=== PATIENT | female | born 1945 | race Caucasian/White ===

== ENCOUNTER 2020-10-27 12:18 | Emergency (ER) | payer MEDICARE ==
[~2020-10-27] VITALS: Ht 162.6 cm; Wt 66.0 kg
[~2020-10-27 12:18] MED LIST: DICY10CA3 PO; DIVA250T PO; DONE10TA7 PO; ESTR1TAB17 PO; LACT1CAP2 PO; LEXAPRO20 MG PO; LISI20TA18 PO; LORA0.5T96 PO; MEMA10TA PO; METF500T16 PO; NITR50CA PO; PIOG15TA42 PO; QUET50TA5 PO; SIMV40TA PO; VERA240C2 PO
[2020-10-27 12:20] VITALS: BP 163/80
--- NOTE | 2020-10-27 13:32 | PHYS DOC ---
Past Medical History Past Medical History: Anxiety, Bipolar, Dementia, Depression, Diabetes-Type II, Hypertension Past Surgical History: Hysterectomy, Tonsillectomy Smoking Status: Never Smoker Alcohol Use: None Adult General Chief Complaint Chief Complaint: TOE PROBLEM HPI HPI Patient is a 75 year old female with a known past medical history of severe Alzheimer's dementia unable to provide any significant history now presenting to the emergency department lead to be concern for left hip fracture. According to alf she was seen and evaluated by physician yesterday is noted to have a fracture of the left fifth toe. Clearly alf she was sent here today to be fitted for a postoperative shoe. Patient is unable to find any significant history is denying any complaints at this time Review of Systems Review of Systems Constitutional: Denies fever or chills [] Eyes: Denies change in visual acuity, redness, or eye pain [] HENT: Denies nasal congestion or sore throat [] Respiratory: Denies cough or shortness of breath [] Cardiovascular: No additional information not addressed in HPI [] GI: Denies abdominal pain, nausea, vomiting, bloody stools or diarrhea [] : Denies dysuria or hematuria [] Musculoskeletal: Denies back pain or joint pain [] Integument: Denies rash or skin lesions [] Neurologic: Denies headache, focal weakness or sensory changes [] Endocrine: Denies polyuria or polydipsia [] All other systems were reviewed and found to be within normal limits, except as documented in this note. Allergies Allergies Allergies Coded Allergies Type Severity Reaction Last Updated Verified propoxyphene Allergy Severe 07/25/20 Yes garlic Allergy Intermediate 07/25/20 Yes metaxalone Allergy Intermediate 07/25/20 Yes oxycodone Allergy Intermediate 07/25/20 Yes Physical Exam Physical Exam Constitutional: Well developed, well nourished, no acute distress, non-toxic appearance. [] HENT: Normocephalic, atraumatic, bilateral external ears normal, oropharynx moist, no oral exudates, nose normal. [] Eyes: PERRLA, EOMI, conjunctiva normal, no discharge. [] Neck: Normal range of motion, no tenderness, supple, no stridor. [] Cardiovascular:Heart rate regular rhythm, no murmur [] Lungs & Thorax: Bilateral breath sounds clear to auscultation [] Abdomen: Bowel sounds normal, soft, no tenderness, no masses, no pulsatile masses. [] Skin: Warm, dry, no erythema, no rash. [] Back: No tenderness, no CVA tenderness. [] Extremities: Mild L 5th toe tenderness, no cyanosis, no clubbing, ROM intact, no edema. [] Neurologic: Alert and oriented X 3, normal motor function, normal sensory function, no focal deficits noted. [] Psychologic: Affect normal, judgement normal, mood normal. [] Current Patient Data Vital Signs Vital Signs Date Time Temp Pulse Resp B/P (MAP) Pulse Ox O2 Delivery O2 Flow Rate FiO2 10/27/20 12:20 98.2 86 16 163/80 (107) 96 Room Air 98.2 EKG EKG [] Radiology/Procedures Radiology/Procedures [] Course & Med Decision Making Course & Med Decision Making Pertinent Labs and Imaging studies reviewed. (See chart for details) 75F brought to the emergency department for presumed left-sided toe pain after fracture. Will provide postop shoe and discharged home Dragon Disclaimer Dragon Disclaimer This electronic medical record was generated, in whole or in part, using a voice recognition dictation system. Departure Departure Impression: Primary Impression: Toe fracture, left Disposition: 01 DC HOME SELF CARE/HOMELESS Condition: GOOD Referrals: ANUSHKA SCHRADER DO (PCP) Patient Instructions: Toe Fracture Additional Instructions: EMERGENCY DEPARTMENT GENERAL DISCHARGE INSTRUCTIONS Thank you for coming to [facility] Emergency Department (ED) today and trusting us with you care. We trust that you had a positive experience in our Emergency Department. If you wish to speak to the department management, you may call the Director at [phone]. YOUR FOLLOW UP INSTRUCTIONS ARE FOLLOWS: 1. Do you have a private Doctor? If you do not have a private doctor, please ask for a resource list of physicians or clinics that may be able to assist you with follow up care. 2. The Emergency Physicain has interpreted your x-rays. The X-Ray specialist will also review them. If there is a change in the findings, you will be notified in 48 hours when at all possible. 3. A lab test or culture has been done, your results will be reviewed and you will be notified if you need a change in treatment. ADDITIONAL INSTRUCTIONS AND INFORMATION: 1. Your care today has been supervised by a physician who is specially trained in emergency care. Many problems require more than one evaluation for a complete diagnosis and treatment. We recommend that you schedule your follow up appointment as recommended to ensure complete treatment of you illness or injury. If you are unable to obtain follow up care and continue to have a problem, or if your condition worsens, we recommend that you return to the ED. 2. We are not able to safely determine your condition over the phone nor are we able to give sound medical advice over the phone. For these safety reasons, if you call for medical advice we will ask you to come to the ED for further evaluation. 3. If you have any questions regarding these discharge instructions please call the ED at [phone]. SAFETY INFORMATION: In the interest of safety, wellness, and injury prevention; we encourage you to wear your sealbelt, if you smoke; quite smoking, and we encourage family to use a protective helmet for bicycling and other sporting events that present an increased risk for head injury. IF YOUR SYMPTOMS WORSEN OR NEW SYMPTOMS DEVELOP, OR YOU HAVE CONCERNS ABOUT YOUR CONDITION; OR IF YOUR CONDITION WORSENS WHILE YOU ARE WAITING FOR YOUR FOLLOW UP APPOINTMENT; EITHER CONTACT YOUR PRIMARY CARE DOCTOR, THE PHYSICIAN WHOSE NAME AND NUMBER YOU WERE GIVEN, OR RETURN TO THE ED IMMEDIATELY. ELBA CALDWELL MD Oct 27, 2020 13:32
== END 2020-10-27 15:15 | disposition home or self-care (01) ==
LOC: ER 12:18
DX: S92.502A Displaced unspecified fracture of left lesser toe(s), initial encounter for closed fracture (principal); F31.9 Bipolar disorder, unspecified; G30.9 Alzheimer's disease, unspecified; F02.80 Dementia in other diseases classified elsewhere, unspecified severity, without behavioral disturbance, psychotic disturbance, mood disturbance, and anxiety; E11.9 Type 2 diabetes mellitus without complications; I10 Essential (primary) hypertension; Z88.5 Allergy status to narcotic agent; Z88.8 Allergy status to other drugs, medicaments and biological substances; Z91.018 Allergy to other foods; X58.XXXA Exposure to other specified factors, initial encounter; Y93.89 Activity, other specified; Y92.89 Other specified places as the place of occurrence of the external cause; Y99.8 Other external cause status
CPT/HCPCS: 99284

== ENCOUNTER 2021-06-14 10:58 | Emergency (ER) | payer MEDICARE ==
[~2021-06-14] VITALS: Ht 154.9 cm; Wt 71.0 kg
--- NOTE | 2021-06-14 11:14 | PHYS DOC ---
Past Medical History Past Medical History: Anxiety, Bipolar, Dementia, Depression, Diabetes-Type II, Hypertension Past Surgical History: Hysterectomy, Tonsillectomy Smoking Status: Never Smoker Alcohol Use: None General Adult EDM: Chief Complaint: AMS HPI: HPI: 76-year-old female who has a history of dementia and is a [facility] resident presents the emergency department for altered mental status. Per report from EMS, the patient was refusing her medications this morning and she reportedly has never done this before. According to the patient, she had a pain pill this morning that she has never had before which is making her feel "funny ". She complains of head pain, abdominal pain. She does not give a clear answer on if she hit her head or not prior to arrival in the emergency department. She is overall a poor historian and has a baseline history of dementia. She does admit to some abdominal pain that is nondescript around her "waist " Review of Systems: Review of Systems: Further ROS is impossible to obtain secondary to the patient's baseline mental status. Heart Score: C/O Chest Pain: No Family History: Family History: Noncontributory Allergies: Allergies: Allergies Coded Allergies Type Severity Reaction Last Updated Verified propoxyphene Allergy Severe 07/25/20 Yes garlic Allergy Intermediate 07/25/20 Yes metaxalone Allergy Intermediate 07/25/20 Yes oxycodone Allergy Intermediate 07/25/20 Yes Physical Exam: PE: Constitutional: Elderly demented female laying in the bed in mild distress. HENT: Atraumatic, bilateral external ears normal, nose normal. Eyes: Pinpoint pupils that are reactive, EOMI Neck: Normal range of motion, supple, no stridor. Cardiovascular: Heart rate regular rhythm. 2+ radial pulses Lungs & Thorax: No respiratory distress, symmetrical expansion. Bilateral breath sounds clear to auscultation Abdomen: Soft, lower quadrant abdominal tenderness Skin: Warm, dry. Extremities: No tenderness, no cyanosis, ROM intact, no edema. Neurologic: Alert and oriented X 3, normal motor function, normal sensory function, no focal deficits noted. GCS 14 Current Patient Data: Labs: Laboratory Tests Test 06/14/21 11:35 White Blood Count 10.1 x10^3/uL (4.0-11.0) Red Blood Count 3.45 x10^6/uL (3.50-5.40) Hemoglobin 11.2 g/dL (12.0-15.5) Hematocrit 33.6 % (36.0-47.0) Mean Corpuscular Volume 97 fL (79-100) Mean Corpuscular Hemoglobin 33 pg (25-35) Mean Corpuscular Hemoglobin Concent 33 g/dL (31-37) Red Cell Distribution Width 13.5 % (11.5-14.5) Platelet Count 137 x10^3/uL (140-400) Neutrophils (%) (Auto) 76 % (31-73) Lymphocytes (%) (Auto) 10 % (24-48) Monocytes (%) (Auto) 13 % (0-9) Eosinophils (%) (Auto) 0 % (0-3) Basophils (%) (Auto) 1 % (0-3) Neutrophils # (Auto) 7.7 x10^3/uL (1.8-7.7) Lymphocytes # (Auto) 1.0 x10^3/uL (1.0-4.8) Monocytes # (Auto) 1.3 x10^3/uL (0.0-1.1) Eosinophils # (Auto) 0.0 x10^3/uL (0.0-0.7) Basophils # (Auto) 0.0 x10^3/uL (0.0-0.2) Urine Collection Type U cath Urine Color Yellow Urine Clarity Clear Urine pH 8.0 (<5.0-8.0) Urine Specific [place] 1.020 (1.000-1.030) Urine Protein 30 mg/dL (NEG-TRACE) Urine Glucose (UA) 100 mg/dL (NEG) Urine Ketones (Stick) Trace mg/dL (NEG) Urine Blood Negative (NEG) Urine Nitrite Positive (NEG) Urine Bilirubin Negative (NEG) Urine Urobilinogen Dipstick 1.0 mg/dL (0.2 mg/dL) Urine Leukocyte Esterase Trace (NEG) Urine RBC 0 /HPF (0-2) Urine WBC 5-10 /HPF (0-4) Urine Squamous Epithelial Cells Few /LPF Urine Transitional Epithelial Cells Occ /LPF Urine Bacteria Few /HPF (0-FEW) Sodium Level 141 mmol/L (136-145) Potassium Level 3.9 mmol/L (3.5-5.1) Chloride Level 104 mmol/L (98-107) Carbon Dioxide Level 29 mmol/L (21-32) Anion Gap 8 (6-14) Blood Urea Nitrogen 18 mg/dL (7-20) Creatinine 1.0 mg/dL (0.6-1.0) Estimated GFR (Cockcroft-Gault) 53.9 BUN/Creatinine Ratio 18 (6-20) Glucose Level 130 mg/dL (70-99) Lactic Acid Level 1.3 mmol/L (0.4-2.0) Calcium Level 8.2 mg/dL (8.5-10.1) Magnesium Level 2.0 mg/dL (1.8-2.4) Total Bilirubin 0.3 mg/dL (0.2-1.0) Aspartate Amino Transf (AST/SGOT) 12 U/L (15-37) Alanine Aminotransferase (ALT/SGPT) 11 U/L (14-59) Alkaline Phosphatase 70 U/L (46-116) Troponin I High Sensitivity < 4 ng/L (4-50) XM-Yfb-H-Type Natriuretic Peptide 493 pg/mL (0-449) Total Protein 6.4 g/dL (6.4-8.2) Albumin 2.7 g/dL (3.4-5.0) Albumin/Globulin Ratio 0.7 (1.0-1.7) Lipase 114 U/L (73-393) Urine Opiates Screen Neg (NEG) Urine Methadone Screen Neg (NEG) Urine Barbiturates Neg (NEG) Urine Phencyclidine Screen Neg (NEG) Urine Amphetamine/Methamphetamine Neg (NEG) Urine Benzodiazepines Screen Neg (NEG) Urine Cocaine Screen Neg (NEG) Urine Cannabinoids Screen Neg (NEG) Urine Ethyl Alcohol Neg (NEG) Vital Signs: Vital Signs Date Time Temp Pulse Resp B/P (MAP) Pulse Ox O2 Delivery O2 Flow Rate FiO2 06/14/21 11:14 98.2 109 16 164/86 (112) 99 Room Air 98.2 EKG: EKG: Time read: 1111 Sinus tachycardia rate of 112, no ST-T wave changes, no ectopic beats, normal axis, normal HI, QRS, and QTc intervals. Impression: Normal EKG. interpreted by Radha vale D.O. Radiology/Procedures: Radiology/Procedures: CT HEAD/BRAIN WO Date: 06/14/2021 12:12 PM Clinical Indication: Altered mental status Comparison: 07/25/2020. Technique: 5 mm axial tomographic images were obtained of the head without contrast. These were viewed on brain and bone windows. One or more of the following dose reduction techniques were utilized: Automated exposure control (A EC), Adjustment of mA and/or kV according to patient size, Use of iterative reconstruction technique such as ASiR, CT scan done according to ALARA and image gently/image wisely Findings: Moderate generalized cerebral and cerebellar volume loss. Moderate to severe nonspecific periventricular hypoattenuation, most commonly seen with chronic small vessel ischemic disease. Calcified atherosclerosis of the bilateral cavernous and paraclinoid internal carotid arteries and intracranial vertebral arteries. No intra- or extra-axial mass or fluid collection. No acute hemorrhage. The ventricles are normal in size, shape, and morphology. The montes-white matter junction is normal. The subarachnoid cisterns are patent. The visualized paranasal sinuses are normal. The visualized portions of the orbits and globes are normal. The mastoid air cells are clear. The gas leak inspector helper topogram shows no lytic lesion or fracture. Impression: No acute intracranial process. Moderate cerebral volume loss. Moderate to severe chronic small vessel ischemic disease. Electronically signed by: Julius Osorio MD (06/14/2021 12:48 PM) EXAM: XR CHEST 1V 06/14/2021 11:07 AM CLINICAL INDICATION: Altered mental status COMPARISON: Chest radiograph 07/26/2020 TECHNIQUE: AP upright view of the chest FINDINGS: The heart is normal in size. There is new elevation of the right hemidiaphragm. Lungs are mildly hypoexpanded. Streaky right perihilar opacities and mild bibasilar opacities are likely atelectasis. No pleural effusion or pneumothorax. IMPRESSION: Hypoexpanded lungs with new elevation of the right hemidiaphragm and mild bibasilar opacities, likely atelectasis. Electronically signed by: Yamilka Mendoza MD (06/14/2021 11:41 AM) CT ABDOMEN+PELVIS W History: Abdominal pain and tenderness. Comparison: None. Technique: CT of the abdomen and pelvis with intravenous contrast. Findings: The lungs are hypoinflated with bibasilar opacities, likely atelectasis. The liver, spleen, pancreas, and adrenal glands are unremarkable. The gallbladd er is surgically absent. Mild prominence of the common bile duct measuring approximately 8 mm diameter. No hydronephrosis or nephrolithiasis. The bladder is relatively decompressed. The uterus is surgically absent. No pelvic masses. The stomach and small bowel are unremarkable. Surgical clips at the cecal base likely represent appendectomy. Extensive sigmoid diverticulosis. Mild wall thickening at the sigmoid colon however relatively underdistended. No significant pericolonic inflammatory changes. No intra-abdominal free air or free fluid. No adenopathy. Postsurgical changes of the anterior abdominal wall from hernia repair with mesh. L3-L5 posterior spinal fixation with laminectomies. Adjacent segment degenerative disc disease at L2-L3. Impression: 1. Extensive sigmoid diverticulosis with mild wall thickening. This may be due to underdistention, however cannot exclude a mild diverticulitis. No free fluid or pericolonic inflammatory changes. 2. Otherwise no acute findings in the abdomen and pelvis. Status post cholecystectomy, appendectomy and hysterectomy. No evidence of bowel obstruction. Course & Med Decision Making: Course & Med Decision Making I discussed the care with the [facility], the patient at baseline has inappropriate responses to questions and is only oriented to herself. This is her behavior in the emergency department. By all accounts she appears to be at her baseline. Her CT scans are nonconcerning and her labs are at baseline. She will be discharged back to her nursing facility. Further hypertension management per [facility], there is no evidence of acute endorgan damage from hypertension today. Departure Departure Impression: Primary Impression: Behavior concern in adult Disposition: 03 HALFWAY FACILITY Condition: STABLE Referrals: ANUSHKA SCHRADER DO (PCP) Patient Instructions: Dementia, [id number] Additional Instructions: You were seen in the emergency department and your health condition was deemed not to require admission to the hospital. It is important to realize that we can only evaluate you during the time that you are in her department. Occasionally health conditions can worsen upon leaving the emergency department. If this were to happen, please return to and allow us the opportunity to reevaluate you. It is a pleasure to take care of your health needs. Return to the ER if your symptoms worsen, do not improve, or if you develop additional symptoms that are concerning to you RADHA JOHNSON DO Jun 14, 2021 11:14
--- NOTE | 2021-06-14 11:43 | RAD ---
EXAM: XR CHEST 1V 06/14/2021 11:07 AM CLINICAL INDICATION: Altered mental status COMPARISON: Chest radiograph 07/26/2020 TECHNIQUE: AP upright view of the chest FINDINGS: The heart is normal in size. There is new elevation of the right hemidiaphragm. Lungs are mildly hypoexpanded. Streaky right perihilar opacities and mild bibasilar opacities are likely atelec tasis. No pleural effusion or pneumothorax. IMPRESSION: Hypoexpanded lungs with new elevation of the right hemidiaphragm and mild bibasilar opac ities, likely atelectasis. Electronically signed by: Yamilka Mendoza MD (06/14/2021 11:41 AM) [id number]
[2021-06-14 11:45] LABS: BASO % 1 % (0-3); EOS % 0 % (0-3); HEMATOCRIT 33.6 % (36.0-47.0); HEMOGLOBIN 11.2 g/dL (12.0-15.5); LYMPH % 10 % (24-48); MEAN CORPUSCULAR HEMOGLOBIN 33 pg (25-35); MEAN CORPUSCULAR HGB CONC 33 g/dL (31-37); MEAN CORPUSCULAR VOLUME 97 fL (79-100); MONO # 1.3 x10^3/uL (0.0-1.1); MONO % 13 % (0-9); NEUT # 7.7 x10^3/uL (1.8-7.7); NEUT % 76 % (31-73); PLATELET COUNT 137 x10^3/uL (140-400); RED BLOOD COUNT 3.45 x10^6/uL (3.50-5.40); RED CELL DISTRIBUTION WIDTH 13.5 % (11.5-14.5); WHITE BLOOD COUNT 10.1 x10^3/uL (4.0-11.0)
[2021-06-14 11:47] LABS: BILIRUBIN,URINE NEGATIVE (NEG); CLARITY,URINE CLEAR; COLOR,URINE YELLOW; NITRITE,URINE POSITIVE (NEG); PROTEIN,URINE 30 mg/dL (NEG-TRACE)
[2021-06-14 11:56] LABS: CALCIUM 8.2 mg/dL (8.5-10.1); GFR 53.9; POTASSIUM 3.9 mmol/L (3.5-5.1)
[2021-06-14 12:03] LABS: ALBUMIN 2.7 g/dL (3.4-5.0); ALBUMIN/GLOBULIN RATIO 0.7 (1.0-1.7); TOTAL BILIRUBIN 0.3 mg/dL (0.2-1.0); TOTAL PROTEIN 6.4 g/dL (6.4-8.2)
[2021-06-14 12:07] LABS: BACTERIA,URINE FEW /HPF (0-FEW); RBC,URINE 0 /HPF (0-2)
[2021-06-14] MEDS ORDERED: CONTRAST GIVEN. MC PRN (12:15)
[2021-06-14] MEDS ORDERED: IOHEXOL 300 MG/ML 100ML VIAL. IV ONE (12:15)
[2021-06-14 12:43] LABS: BARBITURATES NEG (NEG); BENZODIAZEPINES NEG (NEG); CANNABINOIDS NEG (NEG); COCAINE NEG (NEG); METHADONE NEG (NEG); OPIATES NEG (NEG); PHENCYCLIDINE NEG (NEG)
[2021-06-14 12:44] LABS: AMPHETAMINE/METHAMPHETAMINE NEG (NEG)
--- NOTE | 2021-06-14 12:51 | RAD ---
CT HEAD/BRAIN WO Date: 06/14/2021 12:12 PM Clinical Indication: Altered mental status Comparison: 07/25/2020. Technique: 5 mm axial tomographic images were obtained of the head without contrast. These were view ed on brain and bone windows. One or more of the following dose reduction techniques were utilized: A utomated exposure control (AEC), Adjustment of mA and/or kV according to patient size, Use of iterati ve reconstruction technique such as ASiR, CT scan done according to ALARA and image gently/image chaudhary ly Findings: Moderate generalized cerebral and cerebellar volume loss. Moderate to severe nonspecific periventricu lar hypoattenuation, most commonly seen with chronic small vessel ischemic disease. Calcified atheros clerosis of the bilateral cavernous and paraclinoid internal carotid arteries and intracranial verteb ral arteries. No intra- or extra-axial mass or fluid collection. No acute hemorrhage. The ventricles are normal in size, shape, and morphology. The montes-white matter junction is normal. The subarachnoid cisterns are patent. The visualized paranasal sinuses are normal. The visualized portions of the orbits and globes are no rmal. The mastoid air cells are clear. The insulation engineman topogram shows no lytic lesion or fracture. Impression: No acute intracranial process. Moderate cerebral volume loss. Moderate to severe chronic small vessel ischemic disease. Electronically signed by: Julius Osorio MD (06/14/2021 12:48 PM) [facility]
--- NOTE | 2021-06-14 13:12 | RAD ---
CT ABDOMEN+PELVIS W History: Abdominal pain and tenderness. Comparison: None. Technique: CT of the abdomen and pelvis with intravenous contrast. Findings: The lungs are hypoinflated with bibasilar opacities, likely atelectasis. The liver, spleen, pancreas, and adrenal glands are unremarkable. The gallbladder is surgically absen t. Mild prominence of the common bile duct measuring approximately 8 mm diameter. No hydronephrosis o r nephrolithiasis. The bladder is relatively decompressed. The uterus is surgically absent. No pelvic masses. The stomach and small bowel are unremarkable. Surgical clips at the cecal base likely represent appen dectomy. Extensive sigmoid diverticulosis. Mild wall thickening at the sigmoid colon however relative ly underdistended. No significant pericolonic inflammatory changes. No intra-abdominal free air or free fluid. No adenopathy. Postsurgical changes of the anterior abdomi nal wall from hernia repair with mesh. L3-L5 posterior spinal fixation with laminectomies. Adjacent s egment degenerative disc disease at L2-L3. Impression: 1. Extensive sigmoid diverticulosis with mild wall thickening. This may be due to underdistention, h owever cannot exclude a mild diverticulitis. No free fluid or pericolonic inflammatory changes. 2. Otherwise no acute findings in the abdomen and pelvis. Status post cholecystectomy, appendectomy and hysterectomy. No evidence of bowel obstruction. ------ Exposure: One or more of the following individualized dose reduction techniques were utilized for thi s examination: 1. Automated exposure control 2. Adjustment of the mA and/or kV according to patient size 3. Use of iterative reconstruction technique. Electronically signed by: Rufino Collier MD (06/14/2021 1:09 PM) [id number]
[2021-06-14 15:53] VITALS: BP 185/86
--- NOTE | 2021-06-14 18:05 | EKG ---
[facility] [address] [place] [id number] Test Date: 2021-06-14 Test Time: 11:09:53 Pat Name: STANISLAW SEVILLA Department: Room: Gender: F Hide Buyer: : 1945 Requested By: RADHA JOHNSON Order Number: [id number] Reading MD: Gregorio Tinoco Measurements Intervals [place] Rate: 112 P: 64 IA: 126 QRS: 21 QRSD: 84 T: 50 QT: 328 QTc: 449 Interpretive Statements SINUS TACHYCARDIA T ABNORMALITY IN LATERAL LEADS ABNORMAL ECG Electronically Signed On 06-17-2021 9:38:36 GROWTH HACKER by Gregorio Tinoco
== END 2021-06-14 16:47 ==
LOC: ER 10:58
DX: R46.89 Other symptoms and signs involving appearance and behavior (principal); R41.82 Altered mental status, unspecified; R51.9 Headache, unspecified; R10.30 Lower abdominal pain, unspecified; F41.9 Anxiety disorder, unspecified; F31.9 Bipolar disorder, unspecified; F03.90 Unspecified dementia, unspecified severity, without behavioral disturbance, psychotic disturbance, mood disturbance, and anxiety; E11.9 Type 2 diabetes mellitus without complications; I10 Essential (primary) hypertension; Z88.5 Allergy status to narcotic agent; Z88.8 Allergy status to other drugs, medicaments and biological substances
CPT/HCPCS: 36415; 70450; 71045; 74177; 80053; 80307; 81001; 83605; 83690; 83735; 83880; 84484; 85025; 87040; 87077; 87086; 87186; 93005; 99285-25

== ENCOUNTER 2021-10-20 07:45 | Emergency (ER) | payer MEDICARE ==
[~2021-10-20] VITALS: Ht 170.2 cm; Wt 73.0 kg
--- NOTE | 2021-10-20 07:53 | PHYS DOC ---
Past Medical History Past Medical History: Anxiety, Bipolar, Dementia, Depression, Diabetes-Type II, Hypertension Additional Past Medical Histor: PUD, Past Surgical History: No Surgical History, Hysterectomy, Tonsillectomy Smoking Status: Never Smoker Alcohol Use: None General Adult EDM: Chief Complaint: MECHANICAL FALL HPI: HPI: Patient is a 76 year old female brought in by EMS from her memory care unit for evaluation of a possible fall. The staff were making rounds this morning and found her lying on the floor, next to her bed. EMS reports that she was lying on her left side. She was awake when they arrived. It was surmised that she likely rolled out of bed, though this was an unwitnessed event. The ER nurse contacted the assisted living facility, and apparently the patient's bed was not in a low position, as it was supposed to be. Also, the nurse reported to the our ER nurse that they make rounds hourly on the memory care unit, so they believe that she had not been on the floor for more than an hour when they found her. The patient is normally very confused, she is not currently any more altered or confused than her baseline. She is normally minimally verbally responsive, and she reportedly usually only speaks minimally to people that she knows, but she will not often speak to people she is not familiar with. EMS placed her in a c-collar. The patient mumbles occasionally, she is not able to provide any meaningful information. I am therefore unable to procure any other meaningful or detailed information regarding mechanism of injury, fall or subjective complaints. EMS reported that they thought that her neck was tender to palpation. Review of Systems: Review of Systems: Review of systems markedly limited secondary to daily and chronic clinical conditions. Heart Score: C/O Chest Pain: N/A Risk Factors: Risk Factors: DM, Current or recent (<one month) smoker, HTN, HLP, family history of CAD, obesity. Risk Scores: Score 0 - 3: 2.5% MACE over next 6 weeks - Discharge Home Score 4 - 6: 20.3% MACE over next 6 weeks - Admit for Clinical Observation Score 7 - 10: 72.7% MACE over next 6 weeks - Early Invasive Strategies Allergies: Allergies: Allergies Coded Allergies Type Severity Reaction Last Updated Verified propoxyphene Allergy Severe 07/25/20 Yes garlic Allergy Intermediate 07/25/20 Yes metaxalone Allergy Intermediate 07/25/20 Yes oxycodone Allergy Intermediate 07/25/20 Yes Physical Exam: PE: Constitutional: Frail, chronically ill-appearing, nontoxic, lying on the ED gurney with her eyes closed HENT: Normocephalic, atraumatic, oropharynx is patent and clear, breath is significant malodorous, poor oral hygiene, no evidence of facial or oral trauma or bleeding are noted. External ears are normal bilaterally. TMs are clear bilaterally. No hemotympanum, no otorrhea. Nares are patent without rhinorrhea or epistaxis. No evidence of midface trauma or injury. Eyes: PERRL, EOMI, conjunctiva normal, no discharge. No scleral icterus. No evidence of periorbital swelling, contusion or erythema. Neck: Trachea is midline. No JVD. No midline tenderness or step-offs. No evidence of obvious trauma or injury Cardiovascular:Heart rate regular rhythm, +2 radial and +2 dorsalis pedis pulses bilaterally, no cyanosis, no edema Lungs & Thorax: Equal chest rise, lungs are clear to auscultation bilaterally without rales, rhonchi or wheezes, minimally diminished breath sounds in bilateral bases. No tachypnea, no stridor, no crepitus or subcutaneous emphysema, no contusions of the chest or thorax, no evidence of respiratory distress. Abdomen: Amy is soft, nondistended, nontender to palpation. Normal bowel sounds. No palpable pulsatile mass. Old midline laparotomy incision is noted. Skin: Warm, dry, no erythema, no rash. No open wounds. No lacerations or abrasions or obvious large contusions. Back: No deformity, no midline tenderness or step-offs. Extremities: No limb deformity. Pelvis is stable. Bilateral shoulders, elbows, wrists and hands demonstrate painless passive range of motion. Bilateral hips, knees, ankles and feet demonstrate painless passive range of motion. Neurologic: She is resting, sleepy, awakens and opens eyes to voice. Mumbles incoherently. She does appear to localize to pain. Gag reflex is intact. No facial asymmetry. She moves all 4 extremities equally. Bilateral lower extremity DTRs 2 out of 4. Unable to assess orientation. Unable to assess visual field deficits or lack thereof. Sensation appears to be grossly intact. Psychologic: Affect is flat. EKG: EKG: EKG is interpreted at 0826 Rhythm is sinus Rate is 84 bpm [place] is normal No STEMI Radiology/Procedures: Radiology/Procedures: IMAGING REPORT Signed PATIENT: STANISLAW SEVILLA ACCOUNT: [id number] : 1945 LOCATION: ER AGE: 76 SEX: F EXAM STATUS: PRE ER ORD. PHYSICIAN: ES GA DO REASON: fall PROCEDURE: CT HEAD AND CERVICAL SPINE WO EXAM: Head and cervical spine CT without contrast. HISTORY: Fall. Pain. TECHNIQUE: Computed tomographic images of the head and cervical spine were obtai joanie without contrast. *One or more of the following individualized dose reduction techniques were utilized for this examination: 1. Automated exposure control. 2. Adjustment of the mA and/or kV according to patient size. 3. Use of iterative reconstruction technique. COMPARISON: 06/14/2021. FINDINGS: Head: There is no intracranial hemorrhage. There is no mass effect or midline shift. There is no hydrocephalus. There is cerebral atrophy with compensatory enlargement of the ventricles. There are extensive areas of decreased attenuation within the cerebral white matter, likely due to chronic small vessel disease. No orbital lesion is seen. There is minimal paranasal sinus because of thickening. The mastoid air cells are clear. There is no suspicious calvarial lesion. Cervical spine: There is mild multilevel degenerative listhesis. There is chronic mild decreased vertebral body height at C5. There is degenerative endplate remodeling with disc space narrowing and osteophytosis at C4-C5. There are few small endplate Schmorl's nodes. There is multilevel facet arthropathy. There is no acute fracture. There is no suspicious osseous lesion. There is calcified pannus surrounding the dens. The combination of degenerative changes results in mild right foraminal stenosis at C2-C3, mild left foraminal stenosis at C3-C4, and mild right foraminal stenosis at C4-C5. There is a 6 mm pleural-based nodule within the posterior left lung apex. IMPRESSION: 1. No acute intracranial finding or evidence of acute cervical spine trauma. 2. Extensive cerebral white matter changes, likely due to chronic small vessel disease. 3. Cerebral atrophy. 4. Degenerative change involving the cervical spine, resulting in stenosis at the aforementioned levels. 5. 6 mm pleural-based left apical pulmonary nodule, possibly due to pleural parenchymal scarring. Follow-up can be performed in 12 months if there are risk factors for pulmonary neoplasm. Electronically signed by: Meghan Morgan MD (10/20/2021 8:14 AM) [facility] DICTATED and SIGNED BY: MEGHAN MORGAN MD DATE: 10/20/21 [id number] 0 IMAGING REPORT Signed PATIENT: STANISLAW SEVILLA ACCOUNT: [id number] : 1945 LOCATION: ER AGE: 76 SEX: F EXAM STATUS: PRE ER ORD. PHYSICIAN: ES GA DO REASON: fall PROCEDURE: SHOULDER 2+V RIGHT XR PELVIS 1-2V, XR SHOULDER_RIGHT 2+ VIEWS Clinical indications: Reason: fall /pain: Right shoulder: No acute fracture or dislocation or osteolytic process is evident. No AC joint separation is seen. AP view of the pelvis: No acute fracture or dislocation or diastases or lytic process is seen. IMPRESSION: No acute osseous abnormality is evident. Electronically signed by: Abigail Elder MD (10/20/2021 9:02 AM) [id number] DICTATED and SIGNED BY: AIBGAIL ELDER MD DATE: 10/20/[id number] 0 IMAGING REPORT Signed PATIENT: STANISLAW SEVILLA ACCOUNT: [id number] : 1945 LOCATION: ER AGE: 76 SEX: F EXAM STATUS: PRE ER ORD. PHYSICIAN: ES GA DO REASON: fall PROCEDURE: PELVIS XR PELVIS 1-2V, XR SHOULDER_RIGHT 2+ VIEWS Clinical indications: Reason: fall /pain: Right shoulder: No acute fracture or dislocation or osteolytic process is evident. No AC joint separation is seen. AP view of the pelvis: No acute fracture or dislocation or diastases or lytic process is seen. IMPRESSION: No acute osseous abnormality is evident. Electronically signed by: Abigail Elder MD (10/20/2021 9:02 AM) [id number] DICTATED and SIGNED BY: ABIGAIL ELDER MD DATE: 10/20/21 [id number] 0 IMAGING REPORT Signed PATIENT: STANISLAW SEVILLA ACCOUNT: [id number] : 1945 LOCATION: ER AGE: 76 SEX: F EXAM STATUS: PRE ER ORD. PHYSICIAN: ES GA DO REASON: fall PROCEDURE: PORTABLE CHEST 1V EXAM: Chest, single view. HISTORY: Fall. COMPARISON: 06/14/2022 FINDINGS: A frontal view of the chest is obtained. There is no infiltrate, pleural effusion or pneumothorax. There is left basilar atelectasis or scarring. The heart is normal in size. IMPRESSION: No acute pulmonary finding. Electronically signed by: Meghan Morgan MD (10/20/2021 8:53 AM) [facility] DICTATED and SIGNED BY: MEGHAN MORGAN MD DATE: 10/20/21 [id number] 0 Course & Med Decision Making: Course & Med Decision Making Pertinent Labs and Imaging studies reviewed. (See chart for details) Patient had reported right shoulder pain. She became more conversant. She denied chest pain or shortness of breath. She was given a dose of Tylenol for her shoulder pain. X-ray imaging does not reveal any acute life-threatening process. CT imaging is unremarkable for acute fracture or intracranial hemorrhage. She is currently at her baseline mental status. She does have findings of urinary tract infection. First dose of oral Keflex is provided here. She will be given a prescription for discharge back to her residential facility. No current indication for further invasive exams, admission at this time. Return precautions provided. Dragon Disclaimer: Angle Disclaimer: This electronic medical record was generated, in whole or in part, using a voice recognition dictation system. Departure Departure Impression: Primary Impression: Fall Qualified Codes: W19.XXXA - Unspecified fall, initial encounter Additional Impression: Urinary tract infection Qualified Codes: N39.0 - Urinary tract infection, site not specified; R31.9 - Hematuria, unspecified Disposition: 03 [facility] Condition: STABLE Referrals: ANUSHKA SCHRADER DO (PCP) Patient Instructions: Fall Prevention and Home Safety, Urinary Tract Infection Additional Instructions: Please take the full course of antibiotics as directed for your urinary tract infection. If there is any need to change antibiotics based on your urine c ulture result, you should be notified in about 48 hours. Please return to the ER for any new injury or trauma, if you develop any acute changes in mental status, focal weakness, vomiting, dehydration, chest pain, shortness of breath or any other concerns. Please follow-up with your primary care physician. Scripts Cephalexin (KEFLEX) 500 Mg Capsule 1 CAP PO BID for 7 Days, #14 CAP 0 Refills Prov: ES GA DO 10/20/21 ES GA DO Oct 20, 2021 07:53
--- NOTE | 2021-10-20 08:16 | RAD ---
EXAM: Head and cervical spine CT without contrast. HISTORY: Fall. Pain. TECHNIQUE: Computed tomographic images of the head and cervical spine were obtained without contrast. *One or more of the following individualized dose reduction techniques were utilized for this examina tion: 1. Automated exposure control. 2. Adjustment of the mA and/or kV according to patient size. 3. Use of iterative reconstruction technique. COMPARISON: 06/14/2021. FINDINGS: Head: There is no intracranial hemorrhage. There is no mass effect or midline shift. There is no hydr ocephalus. There is cerebral atrophy with compensatory enlargement of the ventricles. There are exten sive areas of decreased attenuation within the cerebral white matter, likely due to chronic small ves meagan disease. No orbital lesion is seen. There is minimal paranasal sinus because of thickening. The m astoid air cells are clear. There is no suspicious calvarial lesion. Cervical spine: There is mild multilevel degenerative listhesis. There is chronic mild decreased vert ebral body height at C5. There is degenerative endplate remodeling with disc space narrowing and oste ophytosis at C4-C5. There are few small endplate Schmorl's nodes. There is multilevel facet arthropat hy. There is no acute fracture. There is no suspicious osseous lesion. There is calcified pannus surr ounding the dens. The combination of degenerative changes results in mild right foraminal stenosis at C2-C3, mild left foraminal stenosis at C3-C4, and mild right foraminal stenosis at C4-C5. There is a 6 mm pleural-based nodule within the posterior left lung apex. IMPRESSION: 1. No acute intracranial finding or evidence of acute cervical spine trauma. 2. Extensive cerebral white matter changes, likely due to chronic small vessel disease. 3. Cerebral atrophy. 4. Degenerative change involving the cervical spine, resulting in stenosis at the aforementioned leve ls. 5. 6 mm pleural-based left apical pulmonary nodule, possibly due to pleural parenchymal scarring. Fol low-up can be performed in 12 months if there are risk factors for pulmonary neoplasm. Electronically signed by: Meghan Thrasher MD (10/20/2021 8:14 AM) [facility]
[2021-10-20 08:24] LABS: BASO % 0 % (0-3); EOS # 0.1 x10^3/uL (0.0-0.7); EOS % 1 % (0-3); HEMATOCRIT 36.7 % (36.0-47.0); LYMPH # 1.3 x10^3/uL (1.0-4.8); LYMPH % 17 % (24-48); MEAN CORPUSCULAR HEMOGLOBIN 32 pg (25-35); MEAN CORPUSCULAR HGB CONC 33 g/dL (31-37); MEAN CORPUSCULAR VOLUME 97 fL (79-100); MONO % 12 % (0-9); NEUT # 5.5 x10^3/uL (1.8-7.7); NEUT % 70 % (31-73); PLATELET COUNT 182 x10^3/uL (140-400); RED CELL DISTRIBUTION WIDTH 13.6 % (11.5-14.5); WHITE BLOOD COUNT 7.9 x10^3/uL (4.0-11.0)
[2021-10-20 08:36] LABS: ANION GAP 11 (6-14); BLOOD UREA NITROGEN 22 mg/dL (7-20); CALCIUM 9.3 mg/dL (8.5-10.1); CARBON DIOXIDE 29 mmol/L (21-32); CHLORIDE 103 mmol/L (98-107); CREATININE 1.1 mg/dL (0.6-1.0); GFR 48.3; GLUCOSE 133 mg/dL (70-99); SODIUM 143 mmol/L (136-145)
[2021-10-20 08:39] LABS: CREATINE KINASE 29 U/L (26-192); MAGNESIUM 1.6 mg/dL (1.8-2.4); PHOSPHORUS 3.7 mg/dL (2.6-4.7)
[2021-10-20] MEDS ORDERED: ACETAMINOPHEN 500 MG TABLET PO ONE (08:45)
--- NOTE | 2021-10-20 08:56 | RAD ---
EXAM: Chest, single view. HISTORY: Fall. COMPARISON: 06/14/2022 FINDINGS: A frontal view of the chest is obtained. There is no infiltrate, pleural effusion or pneumo thorax. There is left basilar atelectasis or scarring. The heart is normal in size. IMPRESSION: No acute pulmonary finding. Electronically signed by: Meghan Thrasher MD (10/20/2021 8:53 AM) [facility]
[2021-10-20 09:00] LABS: BILIRUBIN,URINE NEGATIVE (NEG); CLARITY,URINE CLEAR; COLOR,URINE YELLOW; NITRITE,URINE POSITIVE (NEG); PH,URINE 5.5 (<5.0-8.0); PROTEIN,URINE 30 mg/dL (NEG-TRACE); UROBILINOGEN,URINE 0.2 mg/dL (0.2 mg/dL)
[2021-10-20 09:01] LABS: BACTERIA,URINE MANY /HPF (0-FEW)
--- NOTE | 2021-10-20 09:04 | RAD ---
XR PELVIS 1-2V, XR SHOULDER_RIGHT 2+ VIEWS Clinical indications: Reason: fall /pain: Right shoulder: No acute fracture or dislocation or osteolytic process is evident. No AC joint separa tion is seen. AP view of the pelvis: No acute fracture or dislocation or diastases or lytic process is seen. IMPRESSION: No acute osseous abnormality is evident. Electronically signed by: Teo Elder MD (10/20/2021 9:02 AM) [id number]
[2021-10-20 10:01] VITALS: BP 154/51
[2021-10-20] MEDS ORDERED: CEPH500C PO (10:11)
[2021-10-20] MEDS ORDERED: CEPHALEXIN 250 MG CAPSULE. PO ONE (10:15)
--- NOTE | 2021-10-20 17:12 | EKG ---
[facility] [address] [place] [address] Test Date: 2021-10-20 Test Time: 08:24:14 Pat Name: STANISLAW SEVILLA Department: Room: Gender: F Medical Doctor Md: : 1945 Requested By: ES GA Order Number: [id number] Reading MD: Measurements Intervals [place] Rate: 84 P: -9 IN: 126 QRS: 29 QRSD: 90 T: 83 QT: 384 QTc: 457 Interpretive Statements SINUS RHYTHM NORMAL ECG RI6.02 No previous ECG available for comparison
== END 2021-10-20 11:29 ==
LOC: ER 07:45
DX: R51.9 Headache, unspecified (principal); N39.0 Urinary tract infection, site not specified; R31.9 Hematuria, unspecified; M54.2 Cervicalgia; M25.511 Pain in right shoulder; R10.2 Pelvic and perineal pain; G89.11 Acute pain due to trauma; F31.9 Bipolar disorder, unspecified; F03.90 Unspecified dementia, unspecified severity, without behavioral disturbance, psychotic disturbance, mood disturbance, and anxiety; E11.9 Type 2 diabetes mellitus without complications; I10 Essential (primary) hypertension; Z90.710 Acquired absence of both cervix and uterus; Z88.5 Allergy status to narcotic agent; Z88.8 Allergy status to other drugs, medicaments and biological substances; Z91.018 Allergy to other foods; W18.39XA Other fall on same level, initial encounter; Y93.89 Activity, other specified; Y92.89 Other specified places as the place of occurrence of the external cause; Y99.8 Other external cause status
CPT/HCPCS: 36415; 70450; 71045; 72125; 72170; 73030; 80048; 80164; 81001; 82550; 83735; 84100; 84484; 85025; 87077; 87086; 87186; 93005; P9612; 99285-25

== ENCOUNTER 2021-11-01 19:41 | Inpatient (IN) | payer MEDICARE ==
[~2021-11-01] VITALS: Ht 170.2 cm; Wt 68.0 kg
[~2021-11-01 19:41] MED LIST changes: +CEPH500C PO
--- NOTE | 2021-11-01 19:57 | PHYS DOC ---
Past Medical History Past Medical History: Anxiety, Bipolar, Dementia, Depression, Diabetes-Type II, Hypertension Additional Past Medical Histor: CHRONIC BACK PAIN Past Surgical History: Other Additional Past Surgical Histo: EXLAP Smoking Status: Never Smoker Alcohol Use: None General Adult EDM: Chief Complaint: General Complaint HPI: HPI: Patient is a 76 year old female past medical history hypertension diabetes dementia presents for evaluation after a choking episode which resulted in patient being hypoxic and hypotensive. Per EMS patient was at the dinner table suddenly started choking and eventually vomited. After episode patient was laid on the ground vital signs taken patient found to be hypoxic with action saturations in the 70s and hypotensive with a blood pressures of 70 systolic. Patient was transported to the emergency department for further evaluation. Patient is alert. She does not have any signs of traumatic injury. Her eyes are pinpoint. She has emesis on her cheek and face. Lungs are diminished. Oxygen saturation on 4 L nasal cannula is 96%. After 1 L of IV fluids patient's blood pressure 80 systolic. Review of Systems: Review of Systems: Constitutional: Denies fever or chills. [] Eyes: Denies change in visual acuity. [] HENT: Denies nasal congestion or sore throat. [] Respiratory: Denies cough or shortness of breath. [] Cardiovascular: Denies chest pain or edema. [] GI: Denies abdominal pain, nausea, vomiting, bloody stools or diarrhea. [] : Denies dysuria. [] Musculoskeletal: Denies back pain or joint pain. [] Integument: Denies rash. [] Neurologic: Denies headache, focal weakness or sensory changes. [] Endocrine: Denies polyuria or polydipsia. [] Lymphatic: Denies swollen glands. [] Psychiatric: Denies depression or anxiety. [] Heart Score: C/O Chest Pain: N/A Risk Factors: Risk Factors: DM, Current or recent (<one month) smoker, HTN, HLP, family history of CAD, obesity. Risk Scores: Score 0 - 3: 2.5% MACE over next 6 weeks - Discharge Home Score 4 - 6: 20.3% MACE over next 6 weeks - Admit for Clinical Observation Score 7 - 10: 72.7% MACE over next 6 weeks - Early Invasive Strategies Allergies: Allergies: Allergies Coded Allergies Type Severity Reaction Last Updated Verified propoxyphene Allergy Severe 07/25/20 Yes garlic Allergy Intermediate 07/25/20 Yes metaxalone Allergy Intermediate 07/25/20 Yes oxycodone Allergy Intermediate 07/25/20 Yes Physical Exam: PE: Constitutional: Well developed, well nourished, no acute distress, non-toxic appearance. [] HENT: Normocephalic, atraumatic, bilateral external ears normal, oropharynx moist, no oral exudates, nose normal. [] Eyes: Pinpoint pupils, EOMI, conjunctiva normal, no discharge. [] Neck: Normal range of motion, no tenderness, supple, no stridor. [] Cardiovascular:Heart rate regular rhythm, no murmur [] Lungs & Thorax: Bilateral breath sounds clear to auscultation [] Abdomen: Bowel sounds normal, soft, no tenderness, no masses, no pulsatile masses. [] Skin: Warm, dry, no erythema, no rash. [] Back: No tenderness, no CVA tenderness. [] Extremities: No tenderness, no cyanosis, no clubbing, ROM intact, no edema. [] Neurologic: Alert normal motor function, normal sensory function, no focal deficits noted. [] Psychologic: Affect normal, judgement normal, mood normal. [] EKG: EKG: [] Performed at 1946 Rate 81 Normal sinus rhythm No ST elevation No ST depression No acute TX Radiology/Procedures: Radiology/Procedures: [] Course & Med Decision Making: Course & Med Decision Making Pertinent Labs and Imaging studies reviewed. (See chart for details) [] Patient was evaluated for chief complaint. Work-up consisted of laboratory analysis radiologic imaging and EKG. Results reviewed. Upon arrival patient was placed on oxygen 4 L with improvement for oxygen saturation. Patient was bolused IV fluids for her blood pressure that was initially in the 70s. Patient's pupils found to be pinpoint I elected to treat patient with 2 mg of Narcan--- no change in patient's pupils or mental status. Patient with vomit all over her face and close suspected aspiration started patient on Zosyn. Chest x-ray atelectasis left lower lobe. Patient's creatinine found to be elevated at 2. Urine consistent with urinary tract infection. CT head without acute abnormalities. Post treatment oxygen saturation 97% on nasal cannula blood pressure 135 systolic heart rate 78. Patient to be admitted to the hospitalist for further evaluation and treatment Angle Disclaimer: Angle Disclaimer: This electronic medical record was generated, in whole or in part, using a voice recognition dictation system. Departure Departure Impression: Primary Impression: Altered mental status Additional Impressions: Dementia Hypoxia Hypotension Urinary tract infection Disposition: ADMITTED INPATIENT Condition: STABLE Referrals: ANUSHKA SCHRADER DO (PCP) STACEY LÓPEZ DO Nov 01, 2021 19:57
[2021-11-01] MEDS ORDERED: IV NORMAL SALINE 1000ML BAG 1,000 ML IV ONE ×2 (20:00→20:30)
[2021-11-01] MEDS ORDERED: PIPERACILLIN/TAZOBACTAM 4.5 GM in IV DEXTROSE 5% 100ML 100 ML IV ONE (20:00)
[2021-11-01 20:04] LABS: BASO % 0 % (0-3); EOS % 0 % (0-3); HEMATOCRIT 36.5 % (36.0-47.0); HEMOGLOBIN 12.1 g/dL (12.0-15.5); LYMPH # 2.1 x10^3/uL (1.0-4.8); LYMPH % 29 % (24-48); MEAN CORPUSCULAR HEMOGLOBIN 32 pg (25-35); MEAN CORPUSCULAR HGB CONC 33 g/dL (31-37); MEAN CORPUSCULAR VOLUME 97 fL (79-100); MONO # 0.7 x10^3/uL (0.0-1.1); MONO % 9 % (0-9); NEUT # 4.6 x10^3/uL (1.8-7.7); NEUT % 62 % (31-73); PLATELET COUNT 221 x10^3/uL (140-400); RED BLOOD COUNT 3.78 x10^6/uL (3.50-5.40); RED CELL DISTRIBUTION WIDTH 13.7 % (11.5-14.5); WHITE BLOOD COUNT 7.4 x10^3/uL (4.0-11.0)
--- NOTE | 2021-11-01 20:04 | RAD ---
Exam: Chest one view INDICATION: Altered mental status TECHNIQUE: Frontal view of the chest Comparisons: 10/20/2021 FINDINGS: The cardiomediastinal silhouette and pulmonary vessels are within normal limits. Subtle left basilar airspace disease. No pleural effusion IMPRESSION: Subtle left basilar airspace disease likely atelectasis. Electronically signed by: Marlo Cazares MD (11/01/2021 8:02 PM) [facility]
[2021-11-01 20:13] LABS: CALCIUM 9.1 mg/dL (8.5-10.1); CREATININE 2.3 mg/dL (0.6-1.0); GFR 20.6; POTASSIUM 4.1 mmol/L (3.5-5.1)
[2021-11-01 20:19] LABS: ALBUMIN 3.1 g/dL (3.4-5.0); ALBUMIN/GLOBULIN RATIO 0.9 (1.0-1.7); TOTAL BILIRUBIN 0.2 mg/dL (0.2-1.0); TOTAL PROTEIN 6.7 g/dL (6.4-8.2)
--- NOTE | 2021-11-01 20:20 | RAD ---
Exam Date: 11/01/2021 7:[address] HEAD/BRAIN WO Indication: Reason: altered mental status / Spl. Instructions: / History: . TECHNIQUE: Head CT was performed without intravenous contrast. One or more of the following dose re duction techniques were utilized: *Automated exposure control (AEC) *Adjustment of mA and/or kV according to patient size *Use of iterative reconstruction technique *CT scan done according to ALARA, or ALARA/IMAGE GENTLY COMPARISON: October 20, 2021 FINDINGS: The ventricles and sulci are prominent consistent with cerebral volume loss. Patchy ill-defined low attenuation areas in the subcortical and periventricular white matter bilaterally are consistent with microvascular disease. There is no evidence of acute intracranial hemorrhage, extra-axial collecti on, mass effect, midline shift, or acute territorial infarct. No lesion of the skull base or the calv arium is seen. The visualized paranasal sinuses, mastoid air cells and orbits are normal in appearanc e. IMPRESSION: No evidence for acute intracranial abnormality. Volume loss and microvascular disease. Electronically signed by: Germain Salinas MD (11/01/2021 8:18 PM) [facility]
[2021-11-01 20:47] LABS: INFLUENZA A PATIENT NEGATIVE (NEGATIVE); INFLUENZA B PATIENT NEGATIVE (NEGATIVE)
[2021-11-01] MEDS ORDERED: ONDANSETRON PF 4 MG/2 ML VIAL. IVP ONE (21:00)
[2021-11-01] MEDS ORDERED: NALOXONE 2 MG/2 ML DISP.SYRIN. IV ONE (21:00)
[2021-11-01 21:52] LABS: BARBITURATES NEG (NEG); BENZODIAZEPINES NEG (NEG); CANNABINOIDS NEG (NEG); COCAINE NEG (NEG); METHADONE NEG (NEG); OPIATES NEG (NEG); PHENCYCLIDINE NEG (NEG)
[2021-11-01 21:54] LABS: BACTERIA,URINE MANY /HPF (0-FEW); WBC,URINE >40 /HPF (0-4)
[2021-11-01 21:56] LABS: AMPHETAMINE/METHAMPHETAMINE NEG (NEG)
[2021-11-01 23:30] VITALS: BP 171/87
[2021-11-02 03:00] VITALS: BP 140/68
[2021-11-02 07:00] VITALS: BP 142/67
--- NOTE | 2021-11-02 09:10 | PDOC1 ---
History and Physical Date of Service: DOS: DATE: 11/02/21 TIME: 09:00 Chief Complaint: Chief Complain: Hypoxia History of Present Illness: HPI: 76-year-old female with past medical history of hypertension, diabetes, dementia who comes in after a choking episode and experiencing hypoxia with desaturations down to the 70% and hypotension. She arrived with blood pressure of 70 systolic. She was given IV fluids and her blood pressure did improve. In the ED her O2 saturation on room air was 84% and improved with 4 L nasal cannula and saturating 96%. Blood pressure this morning was 142/67. Patient was weak and answering questions appropriately. She does complain of a sore on her tongue that she experienced a few days ago. She does have a sore throat and does have some trouble swallowing. Denies fevers, chest pain, shortness of breath, abdominal pain, diarrhea, syncope or palpitations. Past Medical/Surgical History: PMH/PSH: Past Medical History: Anxiety, Bipolar, Dementia, Depression, Diabetes-Type II, Hypertension, CHRONIC BACK PAIN Past Surgical History: History of exploratory laparotomy Allergies: Allergies: Coded Allergies: propoxyphene (Verified Allergy, Severe, 07/25/20) garlic (Verified Allergy, Intermediate, 07/25/20) metaxalone (Verified Allergy, Intermediate, 07/25/20) oxycodone (Verified Allergy, Intermediate, 07/25/20) Family History: Family History: Reviewed with no relative findings in the chart Social History: Social History: Denies alcohol, tobacco or drug abuse. Current Medications: Current Medications Current Medications Sodium Chloride 1,000 ml @ 1,000 mls/hr 1X ONCE IV Last administered on 11/01/21at 20:00; Start 11/01/21 at 20:00; Stop 11/01/21 at 20:59; Status DC Piperacillin Sod/ Tazobactam Sod 4.5 gm/Dextrose 100 ml @ 200 mls/hr 1X ONCE IV Last administered on 11/01/21at 20:00; Start 11/01/21 at 20:00; Stop 11/01/21 at 20:29; Status DC Sodium Chloride 1,000 ml @ 1,000 mls/hr 1X ONCE IV Last administered on 11/01/21at 20:30; Start 11/01/21 at 20:30; Stop 11/01/21 at 21:29; Status DC Ondansetron HCl (Zofran) 4 mg 1X ONCE IVP Last administered on 11/01/21at 19:48; Start 11/01/21 at 21:00; Stop 11/01/21 at 21:08; Status DC Naloxone HCl (NARCAN 2mg SYRINGE) 2 mg 1X ONCE IV Last administered on 11/01/21at 19:48; Start 11/01/21 at 21:00; Stop 11/01/21 at 21:08; Status DC Active Scripts Active Keflex (Cephalexin) 500 Mg Capsule 1 Cap PO BID 7 Days Nitrofurantoin (Nitrofurantoin Macrocrystal) 50 Mg Capsule 1 Cap PO DAILY 5 Days Reported Dicyclomine Hcl 10 Mg Capsule 10 Mg PO PRN Q6HRS Estrace (Estradiol) 1 Mg Tablet 1 Mg PO DAILY Actos (Pioglitazone Hcl) 15 Mg Tablet 15 Mg PO DAILY Metformin Hcl 500 Mg Tablet 250 Mg PO BIDWMEALS Acidophilus (Lactobacillus Acidophilus) 1 Each Capsule 1 Cap PO DAILY 14 Days Zocor (Simvastatin) 40 Mg Tablet 40 Mg PO HS Namenda (Memantine Hcl) 10 Mg Tablet 10 Mg PO BID Ativan (Lorazepam) 0.5 Mg Tablet 0.25 Mg PO PRN Q6HRS MDD Lexapro (Escitalopram Oxalate) 20 Mg Tablet 20 Mg PO DAILY Seroquel (Quetiapine Fumarate) 50 Mg Tablet 75 Mg PO NOON Seroquel (Quetiapine Fumarate) 50 Mg Tablet 75 Mg PO HS Depakote Er (Divalproex Sodium) 250 Mg Tab.er.24h 1 Tab PO QHS Depakote Er (Divalproex Sodium) 250 Mg Tab.er.24h 1 Tab PO DAILYWLUN ROS: Review of Systems Review of System REVIEW OF SYSTEMS: Limited due to her dementia Physical Exam: Vital Signs: Vital Signs Date Time Temp Pulse Resp B/P (MAP) Pulse Ox O2 Delivery O2 Flow Rate FiO2 11/02/21 08:00 Nasal Cannula 2.0 11/02/21 07:00 98.1 90 18 142/67 (92) 92 98.1 Physcial Exam: General: Well developed, well nourished, no acute distress, well appearing HEENT: Pupils equally round and reactive to light, EOMI, no discharge, normal conjunctiva. Dry mucous membranes Neck: Supple, no nuchal rigidity, no JVD, trachea midline, no tenderness Cardiac: RRR, no murmurs, no gallops, no rubs Chest/Lungs: CTAB, no wheeze, no rhonchi, no crackles Abdomen: soft, non-distended, no guarding, no peritoneal signs, non-tender Back: No tenderness Extremities: no edema, pulses intact, non-tender,capillary refill <3 sec bilateral upper and lower extremities, Neuro: Alert and oriented x 4, no focal deficits, normal speech Labs: Labs: Laboratory Tests Test 11/01/21 19:54 11/01/21 20:24 11/01/21 21:30 White Blood Count 7.4 x10^3/uL (4.0-11.0) Red Blood Count 3.78 x10^6/uL (3.50-5.40) Hemoglobin 12.1 g/dL (12.0-15.5) Hematocrit 36.5 % (36.0-47.0) Mean Corpuscular Volume 97 fL (79-100) Mean Corpuscular Hemoglobin 32 pg (25-35) Mean Corpuscular Hemoglobin Concent 33 g/dL (31-37) Red Cell Distribution Width 13.7 % (11.5-14.5) Platelet Count 221 x10^3/uL (140-400) Neutrophils (%) (Auto) 62 % (31-73) Lymphocytes (%) (Auto) 29 % (24-48) Monocytes (%) (Auto) 9 % (0-9) Eosinophils (%) (Auto) 0 % (0-3) Basophils (%) (Auto) 0 % (0-3) Neutrophils # (Auto) 4.6 x10^3/uL (1.8-7.7) Lymphocytes # (Auto) 2.1 x10^3/uL (1.0-4.8) Monocytes # (Auto) 0.7 x10^3/uL (0.0-1.1) Eosinophils # (Auto) 0.0 x10^3/uL (0.0-0.7) Basophils # (Auto) 0.0 x10^3/uL (0.0-0.2) Sodium Level 142 mmol/L (136-145) Potassium Level 4.1 mmol/L (3.5-5.1) Chloride Level 106 mmol/L (98-107) Carbon Dioxide Level 24 mmol/L (21-32) Anion Gap 12 (6-14) Blood Urea Nitrogen 32 mg/dL (7-20) Creatinine 2.3 mg/dL (0.6-1.0) Estimated GFR (Cockcroft-Gault) 20.6 BUN/Creatinine Ratio 14 (6-20) Glucose Level 241 mg/dL (70-99) Calcium Level 9.1 mg/dL (8.5-10.1) Total Bilirubin 0.2 mg/dL (0.2-1.0) Aspartate Amino Transf (AST/SGOT) 12 U/L (15-37) Alanine Aminotransferase (ALT/SGPT) 15 U/L (14-59) Alkaline Phosphatase 54 U/L (46-116) Troponin I High Sensitivity 7 ng/L (4-50) Total Protein 6.7 g/dL (6.4-8.2) Albumin 3.1 g/dL (3.4-5.0) Albumin/Globulin Ratio 0.9 (1.0-1.7) Influenza Type A Antigen Negative (NEGATIVE) Influenza Type B Antigen Negative (NEGATIVE) SARS-CoV-2 Antigen (Rapid) Negative (NEGATIVE) Urine Collection Type Unknown Urine Color (Auto) Light yellow Urine Turbidity Hazy Urine pH (Auto) 5.5 (<5.0-8.0) Urine Specific Crowder 1.011 (1.000-1.030) Urine Protein (Auto) 70 mg/dL (Negative) Urine Glucose (Auto)(UA) Negative mg/dL (Negative) Urine Ketones (Auto) Negative mg/dL (Negative) Urine Blood (Auto) Moderate (Negative) Urine Nitrite Negative (Negative) Urine Bilirubin (Auto) Negative (Negative) Urine Urobilinogen (Auto) Normal mg/dL (Normal) Urine Leukocyte Esterase (Auto) Large (Negative) Urine RBC 6-10 /HPF (0-2) Urine WBC >40 /HPF (0-4) Urine Squamous Epithelial Cells Mod /LPF Urine Bacteria Many /HPF (0-FEW) Urine Mucus Mod /LPF Urine Opiates Screen Neg (NEG) Urine Methadone Screen Neg (NEG) Urine Barbiturates Neg (NEG) Urine Phencyclidine Screen Neg (NEG) Urine Amphetamine/Methamphetamine Neg (NEG) Urine Benzodiazepines Screen Neg (NEG) Urine Cocaine Screen Neg (NEG) Urine Cannabinoids Screen Neg (NEG) Urine Ethyl Alcohol Neg (NEG) Laboratory Tests Test 11/01/21 19:54 11/01/21 20:24 11/01/21 21:30 White Blood Count 7.4 x10^3/uL (4.0-11.0) Red Blood Count 3.78 x10^6/uL (3.50-5.40) Hemoglobin 12.1 g/dL (12.0-15.5) Hematocrit 36.5 % (36.0-47.0) Mean Corpuscular Volume 97 fL (79-100) Mean Corpuscular Hemoglobin 32 pg (25-35) Mean Corpuscular Hemoglobin Concent 33 g/dL (31-37) Red Cell Distribution Width 13.7 % (11.5-14.5) Platelet Count 221 x10^3/uL (140-400) Neutrophils (%) (Auto) 62 % (31-73) Lymphocytes (%) (Auto) 29 % (24-48) Monocytes (%) (Auto) 9 % (0-9) Eosinophils (%) (Auto) 0 % (0-3) Basophils (%) (Auto) 0 % (0-3) Neutrophils # (Auto) 4.6 x10^3/uL (1.8-7.7) Lymphocytes # (Auto) 2.1 x10^3/uL (1.0-4.8) Monocytes # (Auto) 0.7 x10^3/uL (0.0-1.1) Eosinophils # (Auto) 0.0 x10^3/uL (0.0-0.7) Basophils # (Auto) 0.0 x10^3/uL (0.0-0.2) Sodium Level 142 mmol/L (136-145) Potassium Level 4.1 mmol/L (3.5-5.1) Chloride Level 106 mmol/L (98-107) Carbon Dioxide Level 24 mmol/L (21-32) Anion Gap 12 (6-14) Blood Urea Nitrogen 32 mg/dL (7-20) Creatinine 2.3 mg/dL (0.6-1.0) Estimated GFR (Cockcroft-Gault) 20.6 BUN/Creatinine Ratio 14 (6-20) Glucose Level 241 mg/dL (70-99) Calcium Level 9.1 mg/dL (8.5-10.1) Total Bilirubin 0.2 mg/dL (0.2-1.0) Aspartate Amino Transf (AST/SGOT) 12 U/L (15-37) Alanine Aminotransferase (ALT/SGPT) 15 U/L (14-59) Alkaline Phosphatase 54 U/L (46-116) Troponin I High Sensitivity 7 ng/L (4-50) Total Protein 6.7 g/dL (6.4-8.2) Albumin 3.1 g/dL (3.4-5.0) Albumin/Globulin Ratio 0.9 (1.0-1.7) Influenza Type A Antigen Negative (NEGATIVE) Influenza Type B Antigen Negative (NEGATIVE) SARS-CoV-2 Antigen (Rapid) Negative (NEGATIVE) Urine Collection Type Unknown Urine Color (Auto) Light yellow Urine Turbidity Hazy Urine pH (Auto) 5.5 (<5.0-8.0) Urine Specific Crowder 1.011 (1.000-1.030) Urine Protein (Auto) 70 mg/dL (Negative) Urine Glucose (Auto)(UA) Negative mg/dL (Negative) Urine Ketones (Auto) Negative mg/dL (Negative) Urine Blood (Auto) Moderate (Negative) Urine Nitrite Negative (Negative) Urine Bilirubin (Auto) Negative (Negative) Urine Urobilinogen (Auto) Normal mg/dL (Normal) Urine Leukocyte Esterase (Auto) Large (Negative) Urine RBC 6-10 /HPF (0-2) Urine WBC >40 /HPF (0-4) Urine Squamous Epithelial Cells Mod /LPF Urine Bacteria Many /HPF (0-FEW) Urine Mucus Mod /LPF Urine Opiates Screen Neg (NEG) Urine Methadone Screen Neg (NEG) Urine Barbiturates Neg (NEG) Urine Phencyclidine Screen Neg (NEG) Urine Amphetamine/Methamphetamine Neg (NEG) Urine Benzodiazepines Screen Neg (NEG) Urine Cocaine Screen Neg (NEG) Urine Cannabinoids Screen Neg (NEG) Urine Ethyl Alcohol Neg (NEG) Images: Images PROCEDURE: CT HEAD WO CONTRAST Exam Date: 11/01/2021 7:[address] HEAD/BRAIN WO Indication: Reason: altered mental status / Spl. Instructions: / History: . TECHNIQUE: Head CT was performed without intravenous contrast. One or more of the following dose reduction techniques were utilized: *Automated exposure control (AEC) *Adjustment of mA and/or kV according to patient size *Use of iterative reconstruction technique *CT scan done according to ALARA, or ALARA/IMAGE GENTLY COMPARISON: October 20, 2021 FINDINGS: The ventricles and sulci are prominent consistent with cerebral volume loss. Patchy ill-defined low attenuation areas in the subcortical and periventricular white matter bilaterally are consistent with microvascular disease. There is no evidence of acute intracranial hemorrhage, extra-axial collection, mass effect, midline shift, or acute territorial infarct. No lesion of the skull base or the calvarium is seen. The visualized paranasal sinuses, mastoid air cells and orbits are normal in appearance. IMPRESSION: No evidence for acute intracranial abnormality. Volume loss and microvascular disease. PROCEDURE: CHEST AP ONLY Exam: Chest one view INDICATION: Altered mental status TECHNIQUE: Frontal view of the chest Comparisons: 10/20/2021 FINDINGS: The cardiomediastinal silhouette and pulmonary vessels are within normal limits. Subtle left basilar airspace disease. No pleural effusion IMPRESSION: Subtle left basilar airspace disease likely atelectasis. Assessment/Plan Assessment/Plan Acute hypoxic respiratory failure secondary to choking episode NEY due to vasomotor nephropathy Acute UTI Possible aspiration pneumonitis History of depression anxiety History of bipolar disorder History of dementia History of diabetes mellitus type 2 History of hypertension Chronic back pain Admit to hospitalist service for further management Speech evaluation pending PT OT modalities Continue empiric IV antibiotics Pending urine cultures Continue IV fluids Strict I/os Monitor urine output Aspiration precautions Lovenox for DVT prophylaxis Protonix GI prophylaxis N.p.o. until speech evaluation completed CODE STATUS assumed full code Discussed with RN and SW Disposition inpatient management as above DPOA: Roseann Turrel Justifications for Admission Other Justification GILBERT BLUM MD Nov 02, 2021 09:10
[2021-11-02] MEDS ORDERED: DOCUSATE SODIUM 100 MG CAPSULE. PO PRN (09:15)
[2021-11-02] MEDS ORDERED: diphenhydrAMINE HCL 25 MG CAPSULE PO PRN ×2 (09:15)
[2021-11-02] MEDS ORDERED: SENNOSIDES 8.6 MG TABLET PO PRN (09:15)
[2021-11-02] MEDS ORDERED: ACETAMINOPHEN 325 MG TABLET. PO PRN (09:15)
[2021-11-02] MEDS ORDERED: ZOLPIDEM 5 MG TABLET. PO PRN (09:15)
[2021-11-02] MEDS ORDERED: LORazepam 0.5 MG TABLET PO PRN (09:15)
[2021-11-02] MEDS ORDERED: ONDANSETRON PF 4 MG/2 ML VIAL. IVP PRN (09:15)
[2021-11-02] MEDS ORDERED: PROCHLORPERAZINE 10 MG/2 ML VIAL. IV PRN (09:15)
[2021-11-02] MEDS ORDERED: diphenhydrAMINE 50 MG/ML VIAL IVP PRN (09:15)
[2021-11-02] MEDS ORDERED: DEXTROSE 50% 25 GM / 50ML DISP.SYRIN. IV PRN (09:15)
[2021-11-02] MEDS: IV NORMAL SALINE 1000ML BAG 1,000 ML IV SCH ×2 (09:15→21:26)
[2021-11-02] MEDS: PIPERACILLIN/TAZOBACTAM 2.25 GM in IV NORMAL SALINE 50ML 50 ML IV SCH ×2 (09:59→17:15)
[2021-11-02 11:00] VITALS: BP 135/69
[2021-11-02] MEDS ORDERED: PIPERACILLIN/TAZOBACTAM 3.375 GM in IV NORMAL SALINE 50ML 50 ML IV SCH (12:00)
[2021-11-02] MEDS: INSULIN LISPRO 300 UNITS/3 ML VIAL. SQ SCH ×2 (12:00→16:33)
[2021-11-02 15:00] VITALS: BP 106/55
[2021-11-02 19:00] VITALS: BP 140/67
[2021-11-02] MEDS ORDERED: DICYCLOMINE HCL 10 MG CAPSULE PO PRN (19:00)
[2021-11-02] MEDS: DIVALPROEX EXTENDED RELEASE 250 MG TAB.ER.24H. PO SCH (21:28)
[2021-11-02] MEDS: SIMVASTATIN 40 MG TABLET. PO SCH (21:28)
[2021-11-02] MEDS: MEMANTINE 10 MG TABLET. PO SCH (21:28)
[2021-11-02] MEDS: QUEtiapine 25 MG TABLET. PO SCH (21:28)
[2021-11-02 23:08] VITALS: BP 118/57
[2021-11-03] MEDS: PIPERACILLIN/TAZOBACTAM 2.25 GM in IV NORMAL SALINE 50ML 50 ML IV SCH ×4 (00:19→19:39)
[2021-11-03 03:11] VITALS: BP 106/51
[2021-11-03] MEDS: IV NORMAL SALINE 1000ML BAG 1,000 ML IV SCH ×2 (05:32→15:15)
[2021-11-03 07:00] VITALS: BP 121/92
[2021-11-03 07:47] LABS: BASO % 0 % (0-3); EOS # 0.1 x10^3/uL (0.0-0.7); EOS % 1 % (0-3); HEMATOCRIT 28.7 % (36.0-47.0); HEMOGLOBIN 9.5 g/dL (12.0-15.5); LYMPH # 1.4 x10^3/uL (1.0-4.8); LYMPH % 18 % (24-48); MEAN CORPUSCULAR HEMOGLOBIN 32 pg (25-35); MEAN CORPUSCULAR HGB CONC 33 g/dL (31-37); MEAN CORPUSCULAR VOLUME 96 fL (79-100); MONO # 0.7 x10^3/uL (0.0-1.1); MONO % 9 % (0-9); NEUT # 5.6 x10^3/uL (1.8-7.7); NEUT % 72 % (31-73); PLATELET COUNT 165 x10^3/uL (140-400); RED BLOOD COUNT 2.99 x10^6/uL (3.50-5.40); RED CELL DISTRIBUTION WIDTH 13.8 % (11.5-14.5); WHITE BLOOD COUNT 7.8 x10^3/uL (4.0-11.0)
[2021-11-03] MEDS: INSULIN LISPRO 300 UNITS/3 ML VIAL. SQ SCH ×3 (08:00→17:00)
[2021-11-03 08:10] LABS: CALCIUM 8.1 mg/dL (8.5-10.1); CREATININE 1.2 mg/dL (0.6-1.0); GFR 43.7; MAGNESIUM 1.8 mg/dL (1.8-2.4); PHOSPHORUS 2.8 mg/dL (2.6-4.7); POTASSIUM 3.3 mmol/L (3.5-5.1)
[2021-11-03] MEDS: LACTOBACILLUS RHAMNOSUS GG 1 CAPSULE. PO SCH (09:46)
[2021-11-03] MEDS: CITALOPRAM 20 MG TABLET. PO SCH (09:47)
[2021-11-03] MEDS: MEMANTINE 10 MG TABLET. PO SCH ×2 (09:47→21:21)
[2021-11-03] MEDS: POTASSIUM CHLORIDE 10MEQ 100 ML IV SCH ×4 (09:47→17:09)
[2021-11-03 11:00] VITALS: BP 157/90
--- NOTE | 2021-11-03 11:29 | PDOC ---
[facility] PROGRESS NOTE Date of Service DOS: DATE: 11/03/21 TIME: 11:28 Chief Complaint Chief Complaint Assessment/Plan Acute hypoxic respiratory failure secondary to choking episode NEY due to vasomotor nephropathy Acute UTI Possible aspiration pneumonitis History of depression anxiety History of bipolar disorder History of dementia History of diabetes mellitus type 2 History of hypertension Chronic back pain Admit to hospitalist service for further management Speech evaluation pending PT OT modalities Continue empiric IV antibiotics Pending urine cultures Continue IV fluids Strict I/os Monitor urine output Aspiration precautions Lovenox for DVT prophylaxis Protonix GI prophylaxis N.p.o. until speech evaluation completed CODE STATUS assumed full code Discussed with RN and SW Disposition inpatient management as above DPOA: Roseann Robertson History of Present Illness History of Present Illness 76-year-old female with past medical history of hypertension, diabetes, dementia who comes in after a choking episode and experiencing hypoxia with desaturations down to the 70% and hypotension. She arrived with blood pressure of 70 systolic. She was given IV fluids and her blood pressure did improve. In the ED her O2 saturation on room air was 84% and improved with 4 L nasal cannula and saturating 96%. Blood pressure this morning was 142/67. Patient was weak and answering questions appropriately. She does complain of a sore on her tongue that she experienced a few days ago. She does have a sore throat and does have some trouble swallowing. Denies fevers, chest pain, shortness of breath, abdominal pain, diarrhea, syncope or palpitations. 11/03/2021 No acute events overnight. Patient seen examined bedside. Not dyspneic or any hypoxic events overnight. Speech evaluation recommended pure diet. Patient's chart, labs, images were reviewed and discussed with RN Vitals/I&O Vitals/I&O: Vital Signs Date Time Temp Pulse Resp B/P (MAP) Pulse Ox O2 Delivery O2 Flow Rate FiO2 11/03/21 08:00 Room Air 11/03/21 07:00 97.9 69 19 121/92 (102) 92 97.9 11/02/21 08:00 2.0 I & O 11/02/21 11/02/21 11/03/21 15:00 23:00 07:00 Output Total 0 ml Balance 0 ml Physical Exam General: Alert, Cooperative Heart: Regular rate Lungs: Clear Abdomen: Normal bowel sounds Extremities: No clubbing Skin: No rashes Labs Labs: Laboratory Tests Test 11/02/21 12:07 11/02/21 15:56 11/02/21 20:38 11/03/21 07:10 Glucose (Fingerstick) 113 mg/dL (70-99) 160 mg/dL (70-99) 114 mg/dL (70-99) White Blood Count 7.8 x10^3/uL (4.0-11.0) Red Blood Count 2.99 x10^6/uL (3.50-5.40) Hemoglobin 9.5 g/dL (12.0-15.5) Hematocrit 28.7 % (36.0-47.0) Mean Corpuscular Volume 96 fL (79-100) Mean Corpuscular Hemoglobin 32 pg (25-35) Mean Corpuscular Hemoglobin Concent 33 g/dL (31-37) Red Cell Distribution Width 13.8 % (11.5-14.5) Platelet Count 165 x10^3/uL (140-400) Neutrophils (%) (Auto) 72 % (31-73) Lymphocytes (%) (Auto) 18 % (24-48) Monocytes (%) (Auto) 9 % (0-9) Eosinophils (%) (Auto) 1 % (0-3) Basophils (%) (Auto) 0 % (0-3) Neutrophils # (Auto) 5.6 x10^3/uL (1.8-7.7) Lymphocytes # (Auto) 1.4 x10^3/uL (1.0-4.8) Monocytes # (Auto) 0.7 x10^3/uL (0.0-1.1) Eosinophils # (Auto) 0.1 x10^3/uL (0.0-0.7) Basophils # (Auto) 0.0 x10^3/uL (0.0-0.2) Sodium Level 145 mmol/L (136-145) Potassium Level 3.3 mmol/L (3.5-5.1) Chloride Level 111 mmol/L (98-107) Carbon Dioxide Level 28 mmol/L (21-32) Anion Gap 6 (6-14) Blood Urea Nitrogen 25 mg/dL (7-20) Creatinine 1.2 mg/dL (0.6-1.0) Estimated GFR (Cockcroft-Gault) 43.7 Glucose Level 98 mg/dL (70-99) Calcium Level 8.1 mg/dL (8.5-10.1) Phosphorus Level 2.8 mg/dL (2.6-4.7) Magnesium Level 1.8 mg/dL (1.8-2.4) Test 11/03/21 08:35 Glucose (Fingerstick) 87 mg/dL (70-99) Assessment and Plan Assessmemt and Plan Problems Medical Problems: (1) Altered mental status Status: Acute (2) Dementia Status: Acute (3) Hypotension Status: Acute (4) Hypoxia Status: Acute (5) Urinary tract infection Status: Acute Comment Review of Relevant I have reviewed the following items imtiaz (where applicable) has been applied. Medications: Current Medications Medications (Trade) Dose Ordered Sig/Windy Route PRN Reason Start Time Stop Time Status Last Admin Dose Admin Divalproex Sodium (Depakote Er) 250 mg QHS PO 11/02/21 21:00 11/02/21 21:28 Memantine (Namenda) 10 mg BID PO 11/02/21 21:00 11/03/21 09:47 Simvastatin (Zocor) 40 mg HS PO 11/02/21 21:00 11/02/21 21:28 Citalopram Hydrobromide (CeleXA) 40 mg DAILY PO 11/03/21 09:00 11/03/21 09:47 Lactobacillus Rhamnosus (Culturelle) 1 cap DAILY PO 11/03/21 09:00 11/03/21 09:46 Quetiapine Fumarate (SEROquel) 75 mg BID@1200,2100 PO 11/02/21 21:00 11/02/21 21:28 Potassium Chloride/Water 100 ml @ 100 mls/hr Q1H IV 11/03/21 10:00 11/03/21 13:59 11/03/21 09:47 Justifications for Admission Other Justification Hypoxic respiratory failure GILBERT BLUM MD Nov 03, 2021 11:29
[2021-11-03] MEDS ORDERED: QUETIAPINE FUMARATE 75 MG PO SCH (12:00)
[2021-11-03] MEDS: QUEtiapine 25 MG TABLET. PO SCH ×2 (12:00→21:22)
[2021-11-03] MEDS: DIVALPROEX EXTENDED RELEASE 250 MG TAB.ER.24H. PO SCH ×2 (12:41→21:21)
[2021-11-03 15:00] VITALS: BP 158/85
[2021-11-03 19:00] VITALS: BP 154/66
[2021-11-03] MEDS: SIMVASTATIN 40 MG TABLET. PO SCH (21:21)
[2021-11-03 23:07] VITALS: BP 150/73
[2021-11-04] MEDS: PIPERACILLIN/TAZOBACTAM 2.25 GM in IV NORMAL SALINE 50ML 50 ML IV SCH ×3 (00:09→11:15)
[2021-11-04] MEDS: IV NORMAL SALINE 1000ML BAG 1,000 ML IV SCH ×2 (00:12→11:15)
[2021-11-04 04:30] VITALS: BP 143/81
[2021-11-04 07:00] VITALS: BP 169/70
[2021-11-04 07:22] LABS: BASO % 0 % (0-3); EOS # 0.2 x10^3/uL (0.0-0.7); EOS % 2 % (0-3); HEMATOCRIT 31.4 % (36.0-47.0); HEMOGLOBIN 10.5 g/dL (12.0-15.5); LYMPH # 1.6 x10^3/uL (1.0-4.8); LYMPH % 19 % (24-48); MEAN CORPUSCULAR HEMOGLOBIN 32 pg (25-35); MEAN CORPUSCULAR HGB CONC 33 g/dL (31-37); MEAN CORPUSCULAR VOLUME 96 fL (79-100); MONO # 0.9 x10^3/uL (0.0-1.1); MONO % 11 % (0-9); NEUT # 5.7 x10^3/uL (1.8-7.7); NEUT % 69 % (31-73); PLATELET COUNT 164 x10^3/uL (140-400); RED BLOOD COUNT 3.28 x10^6/uL (3.50-5.40); RED CELL DISTRIBUTION WIDTH 13.5 % (11.5-14.5); WHITE BLOOD COUNT 8.4 x10^3/uL (4.0-11.0)
[2021-11-04 07:43] LABS: CALCIUM 8.4 mg/dL (8.5-10.1); CREATININE 0.9 mg/dL (0.6-1.0); GFR 60.9; MAGNESIUM 1.6 mg/dL (1.8-2.4); POTASSIUM 3.6 mmol/L (3.5-5.1)
[2021-11-04] MEDS: INSULIN LISPRO 300 UNITS/3 ML VIAL. SQ SCH ×2 (08:00→11:16)
[2021-11-04] MEDS: MEMANTINE 10 MG TABLET. PO SCH (08:38)
[2021-11-04] MEDS: LACTOBACILLUS RHAMNOSUS GG 1 CAPSULE. PO SCH (08:38)
[2021-11-04] MEDS: CITALOPRAM 20 MG TABLET. PO SCH (08:38)
[2021-11-04 10:51] VITALS: BP 142/82
[2021-11-04] MEDS ORDERED: CEFD300C PO (10:52)
--- NOTE | 2021-11-04 10:53 | SNU/HH DC ---
DISCHARGE ORDERS DISCHARGE INFORMATION: DISCHARGE DATE: Nov 04, 2021 FINAL DIAGNOSIS Problems Medical Problems: (1) Altered mental status Status: Acute (2) Dementia Status: Acute (3) Hypotension Status: Acute (4) Hypoxia Status: Acute (5) Urinary tract infection Status: Acute CONDITION ON DISCHARGE: Stable CODE STATUS: Code Status: DNR/DNI SENIOR CARE: SNF STAY <30 DAYS: No POST DISCHARGE ORDERS: ACTIVITY ORDERS: No restrictions, Activity as tolerated WEIGHT BEARING STATUS: No restrictions, As tolerated DIET AFTER DISCHARGE: Regular CHECKS AFTER DISCHARGE: CHECKS AFTER DISCHARGE: Check blood press - daily, Check blood sugar, ac/hs, Check your Temp as needed FOLLOW-UP: LAB ORDERS FOR FOLLOW-UP: CBC, CMP TREATMENT/EQUIPMENT ORDERS: ADAPTIVE EQUIPMENT NEEDED: None Physical Therapy For: Evalulation/Treatment Occupational Therapy For: Evaluation/Treatment Speech Language Pathology For: Evaluation/Treatment DISCHARGE MEDICATIONS: Home Meds Active Scripts Cefdinir (CEFDINIR) 300 Mg Capsule, 1 CAP PO BID for uti for 5 Days, #10 CAP Prov:HERIBERTO JAY MD 11/04/21 Reported Medications Dicyclomine Hcl (DICYCLOMINE HCL) 10 Mg Capsule, 10 MG PO PRN Q6HRS for IBS, CAP 07/26/20 Estradiol (ESTRACE) 1 Mg Tablet, 1 MG PO DAILY for HORMONE, TAB 07/26/20 Pioglitazone Hcl (ACTOS) 15 Mg Tablet, 15 MG PO DAILY for DIABETES, TAB 07/26/20 Metformin Hcl (METFORMIN HCL) 500 Mg Tablet, 250 MG PO BIDWMEALS for ANTI- DIABETIC, TAB 0 Refills 07/26/20 Lactobacillus Acidophilus (ACIDOPHILUS) 1 Each Capsule, 1 CAP PO DAILY for PROBIOTIC for 14 Days, #14 CAP 0 Refills 07/26/20 Simvastatin (ZOCOR) 40 Mg Tablet, 40 MG PO HS for FOR CHOLESTEROL, #30 TAB 0 Refills 07/26/20 Memantine Hcl (NAMENDA) 10 Mg Tablet, 10 MG PO BID for MEMORY, TAB 07/26/20 Lorazepam (ATIVAN) 0.5 Mg Tablet, 0.25 MG PO PRN Q6HRS for ANXIETY MDD , TAB 07/26/20 Escitalopram Oxalate (LEXAPRO) 20 Mg Tablet, 20 MG PO DAILY for ANTI-DEPRESSANT, TAB 0 Refills 07/26/20 Quetiapine Fumarate (SEROQUEL) 50 Mg Tablet, 75 MG PO NOON for DEPRESSION, TAB 07/26/20 Quetiapine Fumarate (SEROQUEL) 50 Mg Tablet, 75 MG PO HS for DEPRESSION, TAB 07/26/20 Divalproex Sodium (DEPAKOTE ER) 250 Mg Tab.er.24h, 1 TAB PO QHS for SEIZURE, #30 TAB 2 Refills 07/26/20 Divalproex Sodium (DEPAKOTE ER) 250 Mg Tab.er.24h, 1 TAB PO DAILYWLUN for SEIZURE, #30 TAB 2 Refills 07/26/20 Discontinued Scripts Cephalexin (KEFLEX) 500 Mg Capsule, 1 CAP PO BID for 7 Days, #14 CAP 0 Refills Prov:ES GA DO 10/20/21 Nitrofurantoin Macrocrystal (NITROFURANTOIN) 50 Mg Capsule, 1 CAP PO DAILY for bacteriuria for 5 Days, #5 CAP 11 Refills Prov:GILBERT BLUM MD 07/26/20 HERIBERTO JAY MD Nov 04, 2021 10:53
--- NOTE | 2021-11-04 10:55 | PDOC3 ---
[facility]-Discharge Summary Date of Admission: Date of Admission: Nov 01, 2021 Date of Discharge: Date of Discharge: Nov 04, 2021 Admission Diagnosis: Admitting Diagnosis: choking episode Hospital Course: Hospital Course: Chief Complaint Assessment/Plan Acute hypoxic respiratory failure secondary to choking episode NEY due to vasomotor nephropathy Acute UTI Possible aspiration pneumonitis History of depression anxiety History of bipolar disorder History of dementia History of diabetes mellitus type 2 History of hypertension Chronic back pain Admit to hospitalist service for further management Speech evaluation pending PT OT modalities Continue empiric IV antibiotics Pending urine cultures Continue IV fluids Strict I/os Monitor urine output Aspiration precautions Lovenox for DVT prophylaxis Protonix GI prophylaxis N.p.o. until speech evaluation completed CODE STATUS assumed full code Discussed with RN and SW Disposition inpatient management as above DPOA: Roseann Robertson History of Present Illness History of Present Illness 76-year-old female with past medical history of hypertension, diabetes, dementia who comes in after a choking episode and experiencing hypoxia with desaturations down to the 70% and hypotension. She arrived with blood pressure of 70 systolic. She was given IV fluids and her blood pressure did improve. In the ED her O2 saturation on room air was 84% and improved with 4 L nasal cannula and saturating 96%. Blood pressure this morning was 142/67. Patient was weak and answering questions appropriately. She does complain of a sore on her tongue that she experienced a few days ago. She does have a sore throat and does have some trouble swallowing. Denies fevers, chest pain, shortness of breath, abdominal pain, diarrhea, syncope or palpitations. 11/03/2021 No acute events overnight. Patient seen examined bedside. Not dyspneic or any hypoxic events overnight. Speech evaluation recommended pure diet. Patient's chart, labs, images were reviewed and discussed with RN 11/04 Patient evaluated examined at bedside. Quite confused. Improved oral intake. Can discharge back to facility today. Antibiotics prescribed for UTI. Facility can decide whether to resume hospice today or not. Greater than 30 minutes spent on discharge. Disposition: Disposition/Orders: D/C to Another Facility Activity: Activity: Resume previous activity Diet: Diet: Regular Medications: Home Meds Active Scripts Cefdinir (CEFDINIR) 300 Mg Capsule, 1 CAP PO BID for uti for 5 Days, #10 CAP Prov:HERIBERTO JAY MD 11/04/21 Reported Medications Dicyclomine Hcl (DICYCLOMINE HCL) 10 Mg Capsule, 10 MG PO PRN Q6HRS for IBS, CAP 07/26/20 Estradiol (ESTRACE) 1 Mg Tablet, 1 MG PO DAILY for HORMONE, TAB 07/26/20 Pioglitazone Hcl (ACTOS) 15 Mg Tablet, 15 MG PO DAILY for DIABETES, TAB 07/26/20 Metformin Hcl (METFORMIN HCL) 500 Mg Tablet, 250 MG PO BIDWMEALS for ANTI- DIABETIC, TAB 0 Refills 07/26/20 Lactobacillus Acidophilus (ACIDOPHILUS) 1 Each Capsule, 1 CAP PO DAILY for PROBIOTIC for 14 Days, #14 CAP 0 Refills 07/26/20 Simvastatin (ZOCOR) 40 Mg Tablet, 40 MG PO HS for FOR CHOLESTEROL, #30 TAB 0 Re fills 07/26/20 Memantine Hcl (NAMENDA) 10 Mg Tablet, 10 MG PO BID for MEMORY, TAB 07/26/20 Lorazepam (ATIVAN) 0.5 Mg Tablet, 0.25 MG PO PRN Q6HRS for ANXIETY MDD , TAB 07/26/20 Escitalopram Oxalate (LEXAPRO) 20 Mg Tablet, 20 MG PO DAILY for ANTI-DEPRESSANT, TAB 0 Refills 07/26/20 Quetiapine Fumarate (SEROQUEL) 50 Mg Tablet, 75 MG PO NOON for DEPRESSION, TAB 07/26/20 Quetiapine Fumarate (SEROQUEL) 50 Mg Tablet, 75 MG PO HS for DEPRESSION, TAB 07/26/20 Divalproex Sodium (DEPAKOTE ER) 250 Mg Tab.er.24h, 1 TAB PO QHS for SEIZURE, #30 TAB 2 Refills 07/26/20 Divalproex Sodium (DEPAKOTE ER) 250 Mg Tab.er.24h, 1 TAB PO DAILYWLUN for SEIZURE, #30 TAB 2 Refills 07/26/20 Discontinued Scripts Cephalexin (KEFLEX) 500 Mg Capsule, 1 CAP PO BID for 7 Days, #14 CAP 0 Refills Prov:ES GA DO 10/20/21 Nitrofurantoin Macrocrystal (NITROFURANTOIN) 50 Mg Capsule, 1 CAP PO DAILY for bacteriuria for 5 Days, #5 CAP 11 Refills Prov:GILBERT BLUM MD 07/26/20 Scheduled Cefdinir (Cefdinir), 1 CAP PO BID Dicyclomine Hcl (Dicyclomine Hcl), 10 MG PO PRN Q6HRS, (Reported) Divalproex Sodium (Depakote Er), 1 TAB PO DAILYWLUN, (Reported) Divalproex Sodium (Depakote Er), 1 TAB PO QHS, (Reported) Escitalopram Oxalate (Lexapro), 20 MG PO DAILY, (Reported) Estradiol (Estrace), 1 MG PO DAILY, (Reported) Lactobacillus Acidophilus (Acidophilus), 1 CAP PO DAILY, (Reported) Lorazepam (Ativan), 0.25 MG PO PRN Q6HRS, (Reported) Memantine Hcl (Namenda), 10 MG PO BID, (Reported) Metformin Hcl (Metformin Hcl), 250 MG PO BIDWMEALS, (Reported) Pioglitazone Hcl (Actos), 15 MG PO DAILY, (Reported) Quetiapine Fumarate (Seroquel), 75 MG PO HS, (Reported) Quetiapine Fumarate (Seroquel), 75 MG PO NOON, (Reported) Simvastatin (Zocor), 40 MG PO HS, (Reported) Discontinued Medications Cephalexin (Keflex), 1 CAP PO BID Nitrofurantoin Macrocrystal (Nitrofurantoin), 1 CAP PO DAILY Justicifation of Admission Dx: Justifications for Admission: Justification of Admission Dx: Yes (choking episode) HERIBERTO JAY MD Nov 04, 2021 10:55
[2021-11-04] MEDS ORDERED: MAGNESIUM SULFATE 2GM 50 ML IV ONE (11:00)
[2021-11-04] MEDS: DIVALPROEX EXTENDED RELEASE 250 MG TAB.ER.24H. PO SCH (12:04)
[2021-11-04] MEDS: QUEtiapine 25 MG TABLET. PO SCH (12:04)
[2021-11-04 15:00] VITALS: BP 146/75
--- NOTE | 2021-11-04 16:28 | NUR ---
Report called to Shaggy RN at [facility]. Patient cleaned up and is ready for discharge. Pickup time scheduled for 1715. Will continue to monitor.
--- NOTE | 2021-11-04 17:25 | NUR ---
Discharge Note: STANISLAW SEVILLA Discharge instructions and discharge home medications reviewed with Other facility and a copy given. All questions have been answered and understanding verbalized. The following instructions and handouts were given: discharge instructions, swallow precautions, copy of chart. Discontinued lines and drains: Peripheral IV discontinued intact. Patient discharged to Assisted Living with Hospice with Ambulance Personnel via [facility]
== END 2021-11-04 17:25 | disposition hospice, inpatient (51) | DRG 177 ==
LOC: ER 19:41 → 5 NORTH 21:34
PROVIDERS: ADMIT Internal Medicine; ATTEND Internal Medicine
DX: J69.0 Pneumonitis due to inhalation of food and vomit (principal); J96.01 Acute respiratory failure with hypoxia; N17.0 Acute kidney failure with tubular necrosis; N39.0 Urinary tract infection, site not specified; E11.9 Type 2 diabetes mellitus without complications; F03.90 Unspecified dementia, unspecified severity, without behavioral disturbance, psychotic disturbance, mood disturbance, and anxiety; F31.9 Bipolar disorder, unspecified; G89.29 Other chronic pain; I10 Essential (primary) hypertension; F41.9 Anxiety disorder, unspecified; Z20.822 Contact with and (suspected) exposure to COVID-19; Z88.8 Allergy status to other drugs, medicaments and biological substances; I95.9 Hypotension, unspecified; Z79.899 Other long term (current) drug therapy
CPT/HCPCS: 36415; 70450; 71045; 80048; 80053; 80307; 81001; 82962; 83735; 84100; 84484; 85025; 87077; 87086; 87186; 87426; 87428; 96365; 96375; J1815; J2310; J2405; J2543; J3475; J3480; J7030; J7060; 92610-GN; 99285-25; G0378